=== PATIENT | male | born 1955 | race Caucasian/White ===

== ENCOUNTER 2020-07-09 19:18 | Day surgery (SDCO) | payer MEDICARE, OTHER ==
[2020-07-09 20:30] LABS: INR 1.13 (0.9-1.2); PROTHROMBIN TIME 13.8 SECONDS (11.4-13.6); PTT 27.7 SECONDS (22.2-34.7)
[2020-07-09 20:33] LABS: BASOPHIL 1.1 % (0-2); EOSINOPHIL 4.5 & (0-5); HCT 22.8 % (42.0-52.0); MCH 22.3 pg (25.0-31.0); MCHC 28.5 g/dL (32.0-36.0); MCV 78.1 fL (78.0-100.0); MONOCYTE 11.6 % (0-12); MPV 11.9 fL (6.0-9.5); NEUTROPHIL 63.4 % (41-80); PLT 141 K/uL (150-400); RBC 2.92 M/uL (4.70-6.00); RDW 18.2 % (11.5-14.0); WBC 4.48 K/uL (4.0-10.5)
[2020-07-09 20:43] LABS: ALBUMIN 3.5 g/dL (3.4-5.0); BILIRUBIN - TOTAL 0.5 mg/dL (0.2-1.0); BUN/CREAT RATIO (CALC) 23.7 RATIO; CREATININE 1.18 mg/dL (0.67-1.17); GLOBULIN (CALCULATION) 3.5 g/dL; POTASSIUM 5.3 mmol/L (3.5-5.1)
[2020-07-09 20:44] LABS: HGB 6.5 g/dl (13.2-18.0)
[2020-07-09 22:06] LABS: RETICULOCYTE COUNT 4.3 % (1.0-2.0)
[2020-07-09 22:33] LABS: IRON % SATURATION 5.8 %SAT (20-50)
[2020-07-09 22:46] LABS: FOLIC ACID (SERUM) 18.5 ng/mL (8.6-58.9)
[2020-07-10] MEDS ORDERED: COREG 3.125M3.125 MG PO (01:13)
[2020-07-10] MEDS ORDERED: MAG-OXIDE 400M400 MG PO (01:14)
[2020-07-10] MEDS ORDERED: ASPIR-TRIN325 MG PO (01:14)
[2020-07-10] MEDS ORDERED: XIFAXAN550 MG PO (01:15)
[2020-07-10] MEDS ORDERED: PRINIVIL20 MG PO (01:15)
[2020-07-10] MEDS ORDERED: JANUMET 50-1,01 EACH PO (01:16)
[2020-07-10] MEDS ORDERED: VASCEPA1 GM PO (01:16)
[2020-07-10 07:02] LABS: BASOPHIL 0.8 % (0-2); EOSINOPHIL 6.2 % (0-5); HGB 7.5 g/dl (13.2-18.0); LYMPHOCYTE 19.4 % (15-48); MCH 23.3 pg (25.0-31.0); MCHC 28.8 g/dL (32.0-36.0); MCV 80.7 fL (78.0-100.0); MONOCYTE 14.5 % (0-12); MPV 11.7 fL (6.0-9.5); NEUTROPHIL 58.3 % (41-80); NRBC 0; RBC 3.22 M/uL (4.70-6.00); RDW 18.5 % (11.5-14.0); WBC 3.7 K/uL (4.0-10.5)
[2020-07-10 07:03] LABS: PLT 108 K/uL (150-400)
[2020-07-10 07:16] LABS: ALBUMIN 3.3 g/dL (3.4-5.0); BILIRUBIN - TOTAL 0.8 mg/dL (0.2-1.0); CREATININE 0.92 mg/dL (0.67-1.17); GLOBULIN (CALCULATION) 3.4 g/dL; MAGNESIUM 2.2 mg/dL (1.8-2.4); POTASSIUM 5.3 mmol/L (3.5-5.1); TOTAL PROTEIN 6.7 g/dL (6.4-8.2)
--- NOTE | 2020-07-10 15:54 | NUR ---
07/10 Mr. Centeno was independent in the home and community prior to dc. He does not use any DME. Discharge is anticipated for 07/11. No needs are anticipated.
[2020-07-11 06:30] LABS: HCT 28.8 % (42.0-52.0); HGB 8.2 g/dl (13.2-18.0); MCH 23.6 pg (25.0-31.0); MCHC 28.5 g/dL (32.0-36.0); MCV 82.8 fL (78.0-100.0); MPV 11.9 fL (6.0-9.5); RBC 3.48 M/uL (4.70-6.00); RDW 18.2 % (11.5-14.0)
[2020-07-11 06:38] LABS: BUN/CREAT RATIO (CALC) 22.6 RATIO; CREATININE 0.84 mg/dL (0.67-1.17); POTASSIUM 5.1 mmol/L (3.5-5.1)
[2020-07-11] MEDS ORDERED: FEOSOL325 MG PO (14:31)
--- NOTE | 2020-07-11 15:35 | NUR ---
1525 PATIENT GIVEN D/C INSTRUCTIONS AND 1 RX. VERBALIZED UNDERSTANDING
== END 2020-07-11 15:30 | disposition home or self-care (01) ==
LOC: FER 19:18 → FMS 23:22
PROVIDERS: Emergency Medicine Emergency Medical Services; Nurse Practitioner; ADMIT Hospitalist
DX: D50.9 Iron deficiency anemia, unspecified (principal); D63.8 Anemia in other chronic diseases classified elsewhere; D69.6 Thrombocytopenia, unspecified; J44.9 Chronic obstructive pulmonary disease, unspecified; E11.9 Type 2 diabetes mellitus without complications; I10 Essential (primary) hypertension; E78.5 Hyperlipidemia, unspecified; B18.2 Chronic viral hepatitis C; K74.60 Unspecified cirrhosis of liver; K21.9 Gastro-esophageal reflux disease without esophagitis; R16.1 Splenomegaly, not elsewhere classified; G47.30 Sleep apnea, unspecified; Z86.010 Personal history of colon polyps; Z20.822 Contact with and (suspected) exposure to COVID-19; Z87.891 Personal history of nicotine dependence; Z79.899 Other long term (current) drug therapy
CPT/HCPCS: 36415; 36430; 71260; 80048; 80053; 82150; 82607; 82746; 83540; 83550; 83690; 83735; 83880; 84100; 84484; 85025; 85610; 85730; 86850; 86900; 86901; 86922; 93005; 94010; 94640; C9113; G0378; J7050; P9016; Q9967; U0002